=== PATIENT | female | born 1950 | race Caucasian/White ===

== ENCOUNTER 2024-03-22 05:11 | Day surgery (SDC) | payer OTHER ==
[2024-03-20 11:30] VITALS: BMI 26.6
[2024-03-22] MEDS ORDERED: LIDOCAINE HCL 1%, 10 MG/ML (20ML VIAL) ONE ×2 (07:08→08:31)
[2024-03-22] MEDS ORDERED: HEPARIN NA (PORCINE) 5,000 UNITS/ML 1ML VIAL ONE (07:09)
[2024-03-22] MEDS ORDERED: PROPOFOL 40 ML ONE ×2 (07:53→09:31)
[2024-03-22] MEDS ORDERED: PROPOFOL 20 ML ONE (08:16)
[2024-03-22] MEDS: ceFAZolin SODIUM 1 GM VIAL IVPB ONE (08:25)
[2024-03-22] MEDS: LIDOCAINE HCL 1%, 10 MG/ML (20ML VIAL) INF ONE (08:27)
[2024-03-22] MEDS ORDERED: ACETAMINOPHEN WITH CODEINE 300MG/30MG TABLET PO PRN (10:03)
[2024-03-22] MEDS: SODIUM CHLORIDE 1,000 ML IV SCH (10:32)
[2024-03-22 12:20] VITALS: PULSE 55
[2024-03-22 12:23] VITALS: BP 131/54; RESP 16; TEMP 97.8
== END 2024-03-22 13:15 | disposition home or self-care (01) ==
LOC: JASU-SURG 05:11
PROVIDERS: ATTEND Surgery
PROC: 03180ZD Bypass Left Brachial Artery to Upper Arm Vein, Open Approach (ICD-10-PCS; principal; 2024-03-22 08:00)
DX: I12.0 Hypertensive chronic kidney disease with stage 5 chronic kidney disease or end stage renal disease (principal); E11.22 Type 2 diabetes mellitus with diabetic chronic kidney disease; N18.6 End stage renal disease; Z99.2 Dependence on renal dialysis; I1A.0 Resistant hypertension
CPT/HCPCS: 82962; 94760; J1644

== ENCOUNTER 2024-06-07 03:53 | Day surgery (SDC) | payer OTHER ==
[2024-06-07] MEDS ORDERED: PROPOFOL 60 ML ONE (09:39)
[2024-06-07] MEDS ORDERED: MIDAZOLAM HCL 2 MG/2 ML SINGLE DOSE VIAL ONE (09:39)
[2024-06-07] MEDS ORDERED: LIDOCAINE HCL 1%, 10 MG/ML (20ML VIAL) ONE (09:55)
[2024-06-07] MEDS ORDERED: HEPARIN NA (PORCINE) 5,000 UNITS/ML 1ML VIAL ONE (09:55)
[2024-06-07] MEDS: ceFAZolin SODIUM 1 GM VIAL IVPB ONE (10:41)
[2024-06-07] MEDS: LIDOCAINE HCL 1%, 10 MG/ML (20ML VIAL) INF ONE ×3 (10:53)
[2024-06-07] MEDS: IOHEXOL 300 MG/ML INFUS..BTL IV ONE ×2 (10:55)
[2024-06-07] MEDS: HEPARIN NA (PORCINE) 5,000 UNITS/ML 1ML VIAL SQ ONE ×2 (11:05)
[2024-06-07] MEDS ORDERED: ACETAMINOPHEN 325 MG TABLET (FP) PO PRN (11:32)
[2024-06-07] MEDS ORDERED: ONDANSETRON 4 MG/2 ML VIAL IVPUSH PRN (11:37)
[2024-06-07] MEDS ORDERED: SODIUM CHLORIDE 1,000 ML IV SCH (11:45)
[2024-06-07 12:07] VITALS: RESP 16
[2024-06-07 12:32] VITALS: TEMP 97.5
[2024-06-07 13:12] VITALS: BP 130/60; PULSE 60
== END 2024-06-07 13:38 | disposition home or self-care (01) ==
LOC: JASU-SURG 03:53
PROVIDERS: ATTEND Surgery
PROC: 03783ZZ Dilation of Left Brachial Artery, Percutaneous Approach (ICD-10-PCS; principal; 2024-06-07 09:30)
DX: T82.898A Other specified complication of vascular prosthetic devices, implants and grafts, initial encounter (principal); I12.0 Hypertensive chronic kidney disease with stage 5 chronic kidney disease or end stage renal disease; I70.208 Unspecified atherosclerosis of native arteries of extremities, other extremity; E11.22 Type 2 diabetes mellitus with diabetic chronic kidney disease; N18.6 End stage renal disease; Z99.2 Dependence on renal dialysis; Z79.84 Long term (current) use of oral hypoglycemic drugs
CPT/HCPCS: 36415; 76000-TC-FY; 82962; 84132; 94760; J1644